=== PATIENT | male | born 1985 | race Caucasian/White ===

== ENCOUNTER 2017-07-29 19:55 | Emergency (ER) | payer OTHER ==
[~2017-07-29] VITALS: Ht 185.4 cm; Wt 82.2 kg
[~2017-07-29 19:55] MED LIST: AMOX TR-K CLV1 EAC4 PO; CHLORDIAZEPOXID25 MG PO; CYANOCOBALAM1000 MCG PO; FAMOTIDINE20 MG PO; FOLIC ACID1 MG PO; VITAMIN B-1100 MG PO
[2017-07-29 22:49] LABS: BASOPHIL (%) 0.5 % (0-1); BASOPHIL COUNT 0.1 K/uL (0-0.1); EOSINOPHIL (%) 0.3 % (0-5); EOSINOPHIL COUNT 0.1 K/uL (0-0.3); HEMATOCRIT 44.1 % (38.0-50.0); HEMOGLOBIN 15.1 G/DL (12.5-16.6); IMMATURE GRANULOCYTE (%) 0.4 % (0.0-0.7); LYMPHOCYTE (%) 10.9 % (15-42); LYMPHOCYTE COUNT 1.7 K/uL (1.0-2.8); MCH 31.1 PG (29.0-34.0); MCHC 34.2 G/DL (30.0-36.0); MCV 90.9 FL (86-99); MONOCYTE (%) 8.3 % (3-12); MONOCYTE COUNT 1.3 K/uL (0-0.8); NEUTROPHIL (%) 79.6 % (45-76); NEUTROPHIL COUNT 12.7 K/uL (1.8-6.4); PLATELET COUNT 275 K/uL (156-360); RBC DIS.WIDTH-CV 12.1 % (11.8-14.6); RBC DIS.WIDTH-SD 40.7 % (39-53); RED BLOOD COUNT 4.85 M/uL (4.00-5.50); WHITE BLOOD COUNT 15.9 K/uL (4.1-10.2)
[2017-07-29 22:58] LABS: CHLORIDE 107 mEq/L (99-109); SODIUM 142 mEq/L (136-147)
[2017-07-29 22:59] LABS: GLUCOSE 100 mg/dL (70-99)
[2017-07-29 23:03] LABS: GFR ESTIMATE (CALCULATED) > 59 mL/min/ (58.99-99999)
[2017-07-29 23:04] LABS: UREA NITROGEN (BUN) 7 mg/dL (9-23)
[2017-07-30 01:28] VITALS: BP 139/76
== END 2017-07-30 01:30 | disposition home or self-care (01) ==
LOC: EME 19:55
PROVIDERS: Physician Assistant
DX: J39.0 Retropharyngeal and parapharyngeal abscess (principal); F17.200 Nicotine dependence, unspecified, uncomplicated
CPT/HCPCS: 70491; 80048; 83605; 85025; 87040; 99281; 99285; J0295; J1100; J1885; J7030; J7050